=== PATIENT | male | born 1970 | race Caucasian/White ===

== ENCOUNTER 2019-04-25 10:43 | Inpatient (IN) ==
[2019-04-25] MEDS ORDERED: CeFAZolin Syr 2,000MG/20 ML 2,000 MG/20 ML SYRINGE IVPB ONE (11:16)
[2019-04-25 11:20] LABS: INR 1.1; Prothrombin Time 12.4 Seconds (9.4-12.1)
[2019-04-25 11:23] LABS: Activated Partial Thrombo Time 35.4 Seconds (26.0-36.0)
[2019-04-25] MEDS ORDERED: Ringers Solution, Lactated 1,000 ML IVC SCH ×2 (11:30→15:37)
[2019-04-25] MEDS ORDERED: *HR* OxyCODONE Immed Rel 5 MG TABLET PO ONE (11:42)
[2019-04-25] MEDS ORDERED: *HR* HYDROmorphone (PF) 1 MG/ML SYRINGE IVP PRN (11:42)
[2019-04-25] MEDS ORDERED: Ondansetron 4 MG/2 ML VIAL IVP ONE (11:42)
[2019-04-25] MEDS ORDERED: *HR* Promethazine 25 MG/ML VIAL IVP PRN (11:42)
[2019-04-25] MEDS ORDERED: *HR* Labetalol 20 MG/4 ML SYRINGE IVP PRN (11:42)
[2019-04-25] MEDS ORDERED: Gabapentin 300 MG CAPSULE PO ONE (11:42)
[2019-04-25] MEDS ORDERED: *HR* Midazolam HCl 2 MG/2 ML VIAL ONE (12:08)
[2019-04-25] MEDS ORDERED: *HR* FentaNYL (PF) 100 MCG/2 ML VIAL ONE (12:08)
[2019-04-25] MEDS ORDERED: *HR* Propofol 200 MG/20 ML VIAL IVP ONE (12:08)
[2019-04-25] MEDS ORDERED: Lidocaine -MPF 2% 2 ML VIAL ONE (12:11)
[2019-04-25] MEDS ORDERED: *HR* Succinylcholine 200 MG/10 ML VIAL IVP ONE (12:11)
[2019-04-25] MEDS ORDERED: Dexamethasone 4 MG/ML VIAL ONE ×2 (12:11→12:35)
[2019-04-25] MEDS ORDERED: Lidocaine HCL 4 ML Topical Solution (Laryng-O-Jet Kit Sterile Pak) TP ONE (12:11)
[2019-04-25] MEDS ORDERED: *HR* Rocuronium Bromide 50 MG/5 ML VIAL ONE (12:11)
[2019-04-25] MEDS ORDERED: Ondansetron 4 MG/2 ML VIAL ONE (12:11)
[2019-04-25] MEDS ORDERED: Ethanol\\Acetic Acid\\Na Ace\\Ben 1,000 ML IRRIG.SOLN IR ONE (12:27)
[2019-04-25] MEDS ORDERED: Ropivacaine/PF 0.5% 30 ML VIAL ONE (12:36)
[2019-04-25] MEDS ORDERED: ROPIVACAINE/PF/NS 0.25% 1 EACH SYRINGE INTRAART ONE (12:36)
[2019-04-25] MEDS ORDERED: EPHEDrine 50 MG/ML VIAL ONE (13:19)
[2019-04-25] MEDS ORDERED: *HR* PHENYLEPHRINE 1,000 MCG/10 ML SYRINGE IVP ONE (13:29)
[2019-04-25 15:28] LABS: Hematocrit 35.8 % (37.5-50.1)
[2019-04-25 15:30] LABS: Hemoglobin 11.4 g/dL (12.9-16.9)
[2019-04-25] MEDS ORDERED: Ondansetron 4 MG/2 ML VIAL IVP PRN (15:37)
[2019-04-25] MEDS ORDERED: Sennosides 8.6 MG TABLET PO PRN (15:37)
[2019-04-25] MEDS ORDERED: traMADol 50 MG TABLET PO PRN (15:37)
[2019-04-25] MEDS ORDERED: *HR* OxyCODONE/APAP 5/325 TABLET PO PRN (15:37)
[2019-04-25] MEDS ORDERED: Diclofenac Sodium (DR) 75 MG TABLET.DR PO PRN ×2 (15:37→21:00)
[2019-04-25] MEDS ORDERED: MOM Conc 10 ML UD.LIQ PO PRN (15:37)
[2019-04-25] MEDS ORDERED: *HR* Enoxaparin 30 MG/0.3 ML SYRINGE SQ SCH (18:00)
[2019-04-25] MEDS: *HR* Enoxaparin 30 MG/0.3 ML SYRINGE SQ SCH (18:57)
[2019-04-25] MEDS: Metoprolol 100 MG TABLET PO SCH (20:05)
[2019-04-25] MEDS ORDERED: Temazepam 15 MG CAPSULE PO PRN (21:00)
[2019-04-25] MEDS: *HR* OxyCODONE Immed Rel 5 MG TABLET PO PRN (23:08)
[2019-04-26] MEDS: *HR* OxyCODONE Immed Rel 5 MG TABLET PO PRN ×2 (04:59→10:08)
[2019-04-26] MEDS: *HR* Enoxaparin 30 MG/0.3 ML SYRINGE SQ SCH (05:01)
[2019-04-26 06:36] LABS: Hematocrit 36.7 % (37.5-50.1); Hemoglobin 12.4 g/dL (12.9-16.9)
[2019-04-26 06:56] LABS: BUN/Creatinine Ratio 19 (6-26); Blood Urea Nitrogen 14 mg/dL (6-20); Calcium 9.1 mg/dL (8.6-10.3); Carbon Dioxide 24 mEq/L (23-29); Chloride 102 mEq/L (98-107); Glucose 215 mg/dL (70-105); Osmolality,Calculated 289 (280-300); Potassium 3.9 mEq/L (3.5-5.1); Sodium 136 mEq/L (136-145); eGFR For African Americans > 60 (> 60); eGFR For Non-African Americans > 60 (> 60)
[2019-04-26 07:05] VITALS: BP 114/65
[2019-04-26] MEDS: Metoprolol 100 MG TABLET PO SCH (08:25)
[2019-04-26] MEDS ORDERED: FLU Vac QV 19-20 (6Month+)/PF 0.5 ML SYRINGE IM ONE (08:28)
[2019-04-26] MEDS ORDERED: Furosemide 40 MG TABLET PO SCH (09:00)
[2019-04-26 12:57] LABS: Estimated Average Glucose 105 mg/dl
== END 2019-04-26 14:00 | disposition home or self-care (01) | DRG 483 ==
LOC: SAMDAY 10:43 → 3NENU 15:36
PROVIDERS: ADMIT Orthopaedic Surgery; ATTEND Orthopaedic Surgery

== ENCOUNTER 2019-11-28 13:22 | Inpatient (IN) ==
[2019-11-28] MEDS ORDERED: CeFAZolin Syr 2,000MG/20 ML 2,000 MG/20 ML SYRINGE IVPB ONE (13:43)
[2019-11-28] MEDS ORDERED: Ringers Solution, Lactated 1,000 ML IVC SCH (13:45)
[2019-11-28] MEDS ORDERED: Ropivacaine/PF 0.5% 30 ML VIAL ONE (14:42)
[2019-11-28] MEDS ORDERED: ROPIVACAINE/PF/NS 0.25% 1 EACH SYRINGE INTRAART ONE (14:43)
[2019-11-28] MEDS ORDERED: Lidocaine -MPF 4% 5 ML AMPUL ONE (14:45)
[2019-11-28] MEDS ORDERED: *HR* Midazolam HCl 2 MG/2 ML VIAL ONE (14:45)
[2019-11-28] MEDS ORDERED: *HR* FentaNYL (PF) 100 MCG/2 ML VIAL ONE ×2 (14:45→17:49)
[2019-11-28] MEDS ORDERED: *HR* Succinylcholine 200 MG/10 ML VIAL IVP ONE (14:45)
[2019-11-28] MEDS ORDERED: *HR* Propofol 200 MG/20 ML VIAL IVP ONE (14:45)
[2019-11-28] MEDS ORDERED: Lidocaine -MPF 2% 2 ML VIAL ONE (14:45)
[2019-11-28] MEDS ORDERED: Ondansetron 4 MG/2 ML VIAL IVP ONE (14:50)
[2019-11-28] MEDS ORDERED: *HR* HYDROmorphone PF 0.5 MG/0.5 ML SYRINGE IVP PRN (14:50)
[2019-11-28] MEDS ORDERED: *HR* OxyCODONE Immed Rel 5 MG TABLET PO PRN (14:50)
[2019-11-28] MEDS ORDERED: Vancomycin 1,000 MG VIAL ONE (15:31)
[2019-11-28] MEDS ORDERED: Ethanol\\Acetic Acid\\Na Ace\\Ben 1,000 ML IRRIG.SOLN IR ONE (15:31)
[2019-11-28] MEDS ORDERED: EPHEDrine 50 MG/ML VIAL ONE (15:52)
[2019-11-28] MEDS ORDERED: Ondansetron 4 MG/2 ML VIAL ONE (15:52)
[2019-11-28] MEDS ORDERED: Dexamethasone 4 MG/ML VIAL ONE (15:52)
[2019-11-28] MEDS ORDERED: *HR* PHENYLEPHRINE 1,000 MCG/10 ML SYRINGE IVP ONE ×3 (15:58→16:53)
[2019-11-28] MEDS ORDERED: Ketorolac 30 MG/ML VIAL ONE (17:42)
[2019-11-28 18:49] LABS: Hematocrit 31.9 % (37.5-50.1); Hemoglobin 9.7 g/dL (12.9-16.9)
[2019-11-28] MEDS ORDERED: Naloxone 0.4 MG/ML INJ IVP PRN (19:40)
[2019-11-28] MEDS ORDERED: Dextrose Gel 15 GM/37.5 ML TUBE PO PRN ×2 (19:40)
[2019-11-28] MEDS ORDERED: D5% in Water 1,000 ML IVC PRN (19:40)
[2019-11-28] MEDS ORDERED: Sennosides 8.6 MG TABLET PO PRN (19:40)
[2019-11-28] MEDS ORDERED: *HR* OxyCODONE/APAP 5/325 TABLET PO PRN (19:40)
[2019-11-28] MEDS ORDERED: Ondansetron 4 MG/2 ML VIAL IVP PRN (19:40)
[2019-11-28] MEDS ORDERED: *HR* Dextrose 50 % in Water (Vial) 50 ML VIAL IVP PRN (19:40)
[2019-11-28] MEDS ORDERED: MOM Conc 10 ML UD.LIQ PO PRN (21:00)
[2019-11-28] MEDS: Ringers Solution, Lactated 1,000 ML IVC SCH (21:27)
[2019-11-28] MEDS: CeFAZolin 2 GM/120 ML BAG IVPB SCH (21:31)
[2019-11-28] MEDS: Ibuprofen 800 MG TABLET PO PRN (21:33)
[2019-11-28] MEDS: Metoprolol 100 MG TABLET PO SCH (21:34)
[2019-11-29] MEDS: CeFAZolin 2 GM/120 ML BAG IVPB SCH (03:10)
[2019-11-29] MEDS: Ibuprofen 800 MG TABLET PO PRN (03:13)
[2019-11-29 04:13] LABS: Hematocrit 30.5 % (37.5-50.1); Hemoglobin 9.5 g/dL (12.9-16.9)
[2019-11-29 04:29] LABS: BUN/Creatinine Ratio 19 (6-26); Blood Urea Nitrogen 17 mg/dL (6-20); Calcium 8.4 mg/dL (8.6-10.3); Carbon Dioxide 24 mEq/L (23-29); Chloride 105 mEq/L (98-107); Glucose 143 mg/dL (70-105); Osmolality,Calculated 288 (280-300); Potassium 4.5 mEq/L (3.5-5.1); Sodium 137 mEq/L (136-145); eGFR For African Americans > 60 (> 60); eGFR For Non-African Americans > 60 (> 60)
[2019-11-29] MEDS: Metoprolol 100 MG TABLET PO SCH (08:30)
[2019-11-29] MEDS: *HR* OxyCODONE Immed Rel 5 MG TABLET PO PRN ×3 (08:31→22:45)
[2019-11-29] MEDS ORDERED: Furosemide 40 MG TABLET PO SCH (09:00)
[2019-11-29] MEDS ORDERED: Aspirin Enteric Coated 81 MG Tablet PO SCH ×2 (09:00)
[2019-11-29] MEDS: Ringers Solution, Lactated 1,000 ML IVC SCH (12:28)
[2019-11-29] MEDS ORDERED: *HR* Succinylcholine 200 MG/10 ML VIAL IVP ONE (17:29)
[2019-11-29] MEDS ORDERED: Ondansetron 4 MG/2 ML VIAL ONE (17:29)
[2019-11-29] MEDS ORDERED: Dexamethasone 4 MG/ML VIAL ONE (17:29)
[2019-11-29] MEDS ORDERED: Lidocaine -MPF 2% 2 ML VIAL ONE ×2 (17:29→18:45)
[2019-11-29] MEDS ORDERED: Lidocaine HCL 4 ML Topical Solution (Laryng-O-Jet Kit Sterile Pak) TP ONE (17:29)
[2019-11-29] MEDS ORDERED: *HR* Propofol 200 MG/20 ML VIAL IVP ONE ×2 (17:30→18:42)
[2019-11-29] MEDS ORDERED: Vancomycin 1,000 MG VIAL ONE (17:30)
[2019-11-29] MEDS ORDERED: Ethanol\\Acetic Acid\\Na Ace\\Ben 1,000 ML IRRIG.SOLN IR ONE (17:30)
[2019-11-29] MEDS ORDERED: *HR* FentaNYL (PF) 100 MCG/2 ML VIAL ONE ×2 (17:32→18:44)
[2019-11-29] MEDS ORDERED: CeFAZolin Syr 2,000MG/20 ML 2,000 MG/20 ML SYRINGE IVPB ONE (18:17)
[2019-11-29] MEDS ORDERED: *HR* LORazepam 2 MG/ML VIAL IVP PRN (19:02)
[2019-11-29] MEDS ORDERED: *HR* Promethazine 25 MG/ML VIAL IVP PRN (19:02)
[2019-11-29] MEDS ORDERED: *HR* Labetalol 20 MG/4 ML SYRINGE IVP PRN (19:02)
[2019-11-29] MEDS ORDERED: Ondansetron 4 MG/2 ML VIAL IVP PRN ×2 (19:02→22:25)
[2019-11-29] MEDS ORDERED: *HR* HYDROMORPHONE 2 MG/ML VIAL ONE (20:02)
[2019-11-29] MEDS: *HR* HYDROmorphone (PF) 1 MG/ML SYRINGE IVP PRN ×2 (20:50→21:02)
[2019-11-29 21:10] LABS: Hematocrit 33.5 % (37.5-50.1); Hemoglobin 10.2 g/dL (12.9-16.9)
[2019-11-29] MEDS ORDERED: Ringers Solution, Lactated 1,000 ML IVC SCH (22:25)
[2019-11-29] MEDS ORDERED: Ibuprofen 800 MG TABLET PO PRN (22:25)
[2019-11-29] MEDS ORDERED: MOM Conc 10 ML UD.LIQ PO PRN (22:25)
[2019-11-29] MEDS ORDERED: Sennosides 8.6 MG TABLET PO PRN (22:25)
[2019-11-29] MEDS ORDERED: Naloxone 0.4 MG/ML INJ IVP PRN (22:25)
[2019-11-29] MEDS ORDERED: D5% in Water 1,000 ML IVC PRN (22:25)
[2019-11-29] MEDS ORDERED: Dextrose Gel 15 GM/37.5 ML TUBE PO PRN ×2 (22:25)
[2019-11-29] MEDS ORDERED: *HR* OxyCODONE/APAP 5/325 TABLET PO PRN (22:25)
[2019-11-29] MEDS ORDERED: Vancomycin 1,750 MG in 0.9 % Sodium Chloride 250 ML IVPB SCH (22:25)
[2019-11-29] MEDS ORDERED: *HR* Dextrose 50 % in Water (Vial) 50 ML VIAL IVP PRN (22:25)
[2019-11-29] MEDS: Vancomycin 1,750 MG/517.5 ML IV.SOLN IVPB SCH (23:10)
[2019-11-30] MEDS: *HR* OxyCODONE Immed Rel 5 MG TABLET PO PRN ×2 (08:04→12:14)
[2019-11-30] MEDS ORDERED: Furosemide 40 MG TABLET PO SCH (09:00)
[2019-11-30] MEDS ORDERED: Aspirin Enteric Coated 81 MG Tablet PO SCH (09:00)
[2019-11-30] MEDS ORDERED: Metoprolol 100 MG TABLET PO SCH (09:00)
[2019-11-30] MEDS: Vancomycin 1,750 MG/517.5 ML IV.SOLN IVPB SCH (11:05)
[2019-11-30 17:23] VITALS: BP 111/67
== END 2019-11-30 18:15 | disposition home or self-care (01) | DRG 483 ==
LOC: SAMDAY 13:22 → 3NENU 19:38
PROVIDERS: ADMIT Orthopaedic Surgery; ATTEND Orthopaedic Surgery

== ENCOUNTER 2019-12-06 14:11 | Inpatient (IN) ==
[2019-12-06] MEDS ORDERED: Vancomycin 1,750 MG/517.5 ML IV.SOLN IVPB ONE (14:29)
[2019-12-06] MEDS ORDERED: Ringers Solution, Lactated 1,000 ML IVC SCH (14:30)
[2019-12-06] MEDS ORDERED: *HR* Midazolam HCl 2 MG/2 ML VIAL ONE ×2 (15:27→15:28)
[2019-12-06] MEDS ORDERED: *HR* FentaNYL (PF) 100 MCG/2 ML VIAL ONE (15:27)
[2019-12-06] MEDS ORDERED: *HR* Propofol 200 MG/20 ML VIAL IVP ONE (15:28)
[2019-12-06] MEDS ORDERED: *HR* Succinylcholine 200 MG/10 ML VIAL IVP ONE (15:29)
[2019-12-06] MEDS ORDERED: Lidocaine -MPF 2% 2 ML VIAL ONE (15:29)
[2019-12-06] MEDS ORDERED: Vancomycin 1,000 MG VIAL ONE ×2 (15:32→15:43)
[2019-12-06] MEDS ORDERED: Lidocaine -MPF 4% 5 ML AMPUL ONE (15:32)
[2019-12-06] MEDS ORDERED: Ethanol\\Acetic Acid\\Na Ace\\Ben 1,000 ML IRRIG.SOLN IR ONE (15:32)
[2019-12-06] MEDS ORDERED: *HR* OxyCODONE Immed Rel 5 MG TABLET PO PRN (15:40)
[2019-12-06] MEDS ORDERED: Acetaminophen IV 1,000 MG/100 ML INFUS..BTL IVPB ONE (15:40)
[2019-12-06] MEDS ORDERED: Ondansetron 4 MG/2 ML VIAL IVP ONE (15:40)
[2019-12-06] MEDS ORDERED: *HR* HYDROmorphone PF 0.5 MG/0.5 ML SYRINGE IVP PRN (15:40)
[2019-12-06] MEDS ORDERED: *HR* Promethazine 25 MG/ML VIAL IVP PRN (15:40)
[2019-12-06] MEDS ORDERED: ROPIVACAINE/PF/NS 0.25% 1 EACH SYRINGE INTRAART ONE (15:51)
[2019-12-06] MEDS ORDERED: Ropivacaine/PF 0.5% 30 ML VIAL ONE (15:51)
[2019-12-06] MEDS ORDERED: Clindamycin 900 MG/50 ML 900 MG/50 ML IV.SOLN IVPB ONE ×2 (16:17→17:11)
[2019-12-06] MEDS ORDERED: Ondansetron 4 MG/2 ML VIAL ONE (16:37)
[2019-12-06] MEDS ORDERED: Dexamethasone 4 MG/ML VIAL ONE (16:37)
[2019-12-06] MEDS ORDERED: *HR* PHENYLEPHRINE 1,000 MCG/10 ML SYRINGE IVP ONE (16:45)
[2019-12-06] MEDS ORDERED: EPHEDrine 50 MG/ML VIAL ONE (17:27)
[2019-12-06] MEDS ORDERED: *HR* Enoxaparin 30 MG/0.3 ML SYRINGE SQ SCH (18:00)
[2019-12-06 18:45] LABS: Hematocrit 27.3 % (37.5-50.1); Hemoglobin 8.5 g/dL (12.9-16.9)
[2019-12-06] MEDS ORDERED: D5% in Water 1,000 ML IVC PRN (19:39)
[2019-12-06] MEDS ORDERED: Sennosides 8.6 MG TABLET PO PRN (19:39)
[2019-12-06] MEDS ORDERED: Ondansetron 4 MG/2 ML VIAL IVP PRN (19:39)
[2019-12-06] MEDS ORDERED: MOM Conc 10 ML UD.LIQ PO PRN (19:39)
[2019-12-06] MEDS ORDERED: Naloxone 0.4 MG/ML INJ IVP PRN (19:39)
[2019-12-06] MEDS ORDERED: Dextrose Gel 15 GM/37.5 ML TUBE PO PRN ×2 (19:39)
[2019-12-06] MEDS ORDERED: *HR* Dextrose 50 % in Water (Vial) 50 ML VIAL IVP PRN (19:39)
[2019-12-06] MEDS: Doxycycline 100 MG CAPSULE PO SCH ×2 (23:05→23:08)
[2019-12-06] MEDS: Metoprolol 100 MG TABLET PO SCH (23:06)
[2019-12-06] MEDS: *HR* OxyCODONE Immed Rel 5 MG TABLET PO PRN (23:07)
[2019-12-06] MEDS: Ringers Solution, Lactated 1,000 ML IVC SCH (23:08)
[2019-12-06] MEDS: Insulin LISPRO 300 UNITS/3 ML VIAL SQ SCH ×2 (23:11→23:19)
[2019-12-07] MEDS ORDERED: Vancomycin 1,750 MG/517.5 ML IV.SOLN IVPB ONE (04:00)
[2019-12-07] MEDS: *HR* OxyCODONE Immed Rel 5 MG TABLET PO PRN ×3 (04:10→18:51)
[2019-12-07] MEDS ORDERED: Acetaminophen IV 1,000 MG/100 ML INFUS..BTL IVPB PRN (05:32)
[2019-12-07] MEDS: Ketorolac 30 MG/ML VIAL IVP PRN ×2 (05:54→21:12)
[2019-12-07] MEDS ORDERED: *HR* Enoxaparin 30 MG/0.3 ML SYRINGE SQ SCH (06:00)
[2019-12-07 07:16] LABS: Hematocrit 27.4 % (37.5-50.1); Hemoglobin 8.4 g/dL (12.9-16.9)
[2019-12-07 07:27] LABS: BUN/Creatinine Ratio 22 (6-26); Blood Urea Nitrogen 16 mg/dL (6-20); Calcium 8.4 mg/dL (8.6-10.3); Carbon Dioxide 23 mEq/L (23-29); Chloride 103 mEq/L (98-107); Glucose 131 mg/dL (70-105); Osmolality,Calculated 279 (280-300); Potassium 3.9 mEq/L (3.5-5.1); Sodium 133 mEq/L (136-145); eGFR For African Americans > 60 (> 60); eGFR For Non-African Americans > 60 (> 60)
[2019-12-07] MEDS: Doxycycline 100 MG CAPSULE PO SCH ×2 (08:16→21:12)
[2019-12-07] MEDS: Furosemide 40 MG TABLET PO SCH (08:16)
[2019-12-07] MEDS: Metoprolol 100 MG TABLET PO SCH ×2 (08:16→21:12)
[2019-12-07] MEDS: Gabapentin 300 MG CAPSULE PO SCH ×3 (08:16→21:12)
[2019-12-07 09:01] LABS: BUN/Creatinine Ratio 20 (6-26); Blood Urea Nitrogen 16 mg/dL (6-20); eGFR For African Americans > 60 (> 60); eGFR For Non-African Americans > 60 (> 60)
[2019-12-07] MEDS: Insulin LISPRO 300 UNITS/3 ML VIAL SQ SCH ×4 (10:07→22:01)
[2019-12-07] MEDS: Vancomycin 1,750 MG/517.5 ML IV.SOLN IVPB SCH (17:03)
[2019-12-08] MEDS: *HR* OxyCODONE Immed Rel 5 MG TABLET PO PRN ×4 (03:22→17:13)
[2019-12-08 03:47] LABS: Hematocrit 27.9 % (37.5-50.1); Hemoglobin 8.4 g/dL (12.9-16.9)
[2019-12-08 04:09] LABS: BUN/Creatinine Ratio 23 (6-26); Blood Urea Nitrogen 20 mg/dL (6-20); Calcium 8.3 mg/dL (8.6-10.3); Carbon Dioxide 25 mEq/L (23-29); Chloride 104 mEq/L (98-107); Glucose 95 mg/dL (70-105); Osmolality,Calculated 284 (280-300); Potassium 3.6 mEq/L (3.5-5.1); Sodium 136 mEq/L (136-145); eGFR For African Americans > 60 (> 60); eGFR For Non-African Americans > 60 (> 60)
[2019-12-08] MEDS: Vancomycin 1,750 MG/517.5 ML IV.SOLN IVPB SCH ×2 (04:23→13:46)
[2019-12-08] MEDS: Insulin LISPRO 300 UNITS/3 ML VIAL SQ SCH ×4 (08:15→21:25)
[2019-12-08] MEDS: Furosemide 40 MG TABLET PO SCH (08:20)
[2019-12-08] MEDS: Gabapentin 300 MG CAPSULE PO SCH ×3 (08:20→20:19)
[2019-12-08] MEDS: Doxycycline 100 MG CAPSULE PO SCH ×2 (08:20→20:19)
[2019-12-08] MEDS: Metoprolol 100 MG TABLET PO SCH ×2 (08:20→20:19)
[2019-12-08] MEDS ORDERED: Aminoglycoside Consult 1 EACH MC ONE (11:13)
[2019-12-08] MEDS: Ketorolac 30 MG/ML VIAL IVP PRN (13:45)
[2019-12-09] MEDS: *HR* OxyCODONE Immed Rel 5 MG TABLET PO PRN ×5 (00:45→20:55)
[2019-12-09 01:08] LABS: Basophils # 0.1 K/mcL (0.0-0.2); Basophils % 0.6 %; Eosinophils # 0.4 K/mcL (0.0-0.6); Eosinophils % 4.7 %; Hematocrit 28.2 % (37.5-50.1); Hemoglobin 8.5 g/dL (12.9-16.9); Immature Granulocytes % 0.5 % (0-4); Lymphocytes # 1.9 K/mcL (0.6-4.6); Mean Corpuscular HGB Conc 30.1 g/dL (31.6-35.5); Mean Corpuscular Hemoglobin 28.5 pg (28.0-33.3); Mean Corpuscular Volume 94.6 fL (83.0-100.0); Mean Platelet Volume 10.8 fL (9.4-12.4); Monocytes # 0.9 K/mcL (0.0-1.3); Monocytes % 11.2 %; Platelet Count 271 K/mcL (140-400); Red Blood Count 2.98 M/mcL (4.19-5.50); Red Cell Distribution Width 14.6 % (11.5-14.5); White Blood Count 8.4 K/mcL (4.3-11.1)
[2019-12-09 01:14] LABS: BUN/Creatinine Ratio 20 (6-26); Blood Urea Nitrogen 18 mg/dL (6-20); Calcium 8.3 mg/dL (8.6-10.3); Carbon Dioxide 25 mEq/L (23-29); Chloride 103 mEq/L (98-107); Glucose 108 mg/dL (70-105); Osmolality,Calculated 282 (280-300); Sodium 135 mEq/L (136-145); eGFR For African Americans > 60 (> 60); eGFR For Non-African Americans > 60 (> 60)
[2019-12-09] MEDS: Vancomycin 1,750 MG/517.5 ML IV.SOLN IVPB SCH (03:38)
[2019-12-09] MEDS: Ibuprofen 800 MG TABLET PO PRN (03:38)
[2019-12-09] MEDS: Doxycycline 100 MG CAPSULE PO SCH (08:40)
[2019-12-09] MEDS: Metoprolol 100 MG TABLET PO SCH ×2 (08:41→20:55)
[2019-12-09] MEDS: Gabapentin 300 MG CAPSULE PO SCH ×3 (08:42→20:55)
[2019-12-09] MEDS: Insulin LISPRO 300 UNITS/3 ML VIAL SQ SCH ×4 (08:43→20:51)
[2019-12-09] MEDS: Furosemide 40 MG TABLET PO SCH (08:46)
[2019-12-09] MEDS: Piperacillin/Tazobactam 3.375 GM in 0.9 % Sodium Chloride Mini Bag 100 ML IVPB SCH (15:39)
[2019-12-09] MEDS: *HR* OxyCODONE/APAP 5/325 TABLET PO PRN (18:30)
[2019-12-09] MEDS: Ringers Solution, Lactated 1,000 ML IVC SCH (18:31)
[2019-12-10] MEDS: *HR* OxyCODONE/APAP 5/325 TABLET PO PRN ×3 (01:02→13:57)
[2019-12-10] MEDS: Piperacillin/Tazobactam 3.375 GM in 0.9 % Sodium Chloride Mini Bag 100 ML IVPB SCH ×3 (01:02→19:31)
[2019-12-10] MEDS: *HR* OxyCODONE Immed Rel 5 MG TABLET PO PRN ×4 (06:37→23:18)
[2019-12-10 06:53] LABS: Basophils % 0.3 %; Eosinophils # 0.4 K/mcL (0.0-0.6); Hematocrit 30.4 % (37.5-50.1); Hemoglobin 9.4 g/dL (12.9-16.9); Immature Granulocytes % 0.5 % (0-4); Lymphocytes % 21.6 %; Mean Corpuscular HGB Conc 30.9 g/dL (31.6-35.5); Mean Corpuscular Hemoglobin 28.6 pg (28.0-33.3); Mean Corpuscular Volume 92.4 fL (83.0-100.0); Mean Platelet Volume 10.6 fL (9.4-12.4); Monocytes # 1.1 K/mcL (0.0-1.3); Monocytes % 11.9 %; Neutrophils # 5.7 K/mcL (1.6-8.9); Platelet Count 286 K/mcL (140-400); Red Blood Count 3.29 M/mcL (4.19-5.50); Red Cell Distribution Width 14.6 % (11.5-14.5); Segmented Neutrophils % 61.7 %; White Blood Count 9.2 K/mcL (4.3-11.1)
[2019-12-10 07:14] LABS: BUN/Creatinine Ratio 16 (6-26); Blood Urea Nitrogen 14 mg/dL (6-20); Calcium 8.9 mg/dL (8.6-10.3); Carbon Dioxide 27 mEq/L (23-29); Chloride 101 mEq/L (98-107); Glucose 112 mg/dL (70-105); Osmolality,Calculated 283 (280-300); Potassium 3.9 mEq/L (3.5-5.1); Sodium 136 mEq/L (136-145); eGFR For African Americans > 60 (> 60); eGFR For Non-African Americans > 60 (> 60)
[2019-12-10] MEDS: Insulin LISPRO 300 UNITS/3 ML VIAL SQ SCH ×4 (09:11→21:11)
[2019-12-10] MEDS: Furosemide 40 MG TABLET PO SCH (09:18)
[2019-12-10] MEDS: Metoprolol 100 MG TABLET PO SCH ×2 (09:19→21:11)
[2019-12-10] MEDS: Gabapentin 300 MG CAPSULE PO SCH ×3 (09:19→21:10)
[2019-12-10 09:38] LABS: C-Reactive Protein 106 mg/L (Less than 10)
[2019-12-10] MEDS: Ibuprofen 800 MG TABLET PO PRN (21:10)
[2019-12-11] MEDS: Piperacillin/Tazobactam 3.375 GM in 0.9 % Sodium Chloride Mini Bag 100 ML IVPB SCH ×2 (00:27→11:57)
[2019-12-11] MEDS: *HR* OxyCODONE Immed Rel 5 MG TABLET PO PRN ×5 (03:23→20:51)
[2019-12-11] MEDS: Metoprolol 100 MG TABLET PO SCH ×2 (07:56→20:51)
[2019-12-11] MEDS: Furosemide 40 MG TABLET PO SCH (07:56)
[2019-12-11] MEDS: Gabapentin 300 MG CAPSULE PO SCH ×3 (07:56→20:52)
[2019-12-11] MEDS: Insulin LISPRO 300 UNITS/3 ML VIAL SQ SCH ×4 (07:57→20:46)
[2019-12-11] MEDS: *HR* OxyCODONE/APAP 5/325 TABLET PO PRN ×2 (13:46→23:59)
[2019-12-11] MEDS: cefTRIAXone 2,000 MG in 0.9 % Sodium Chloride Mini Bag 100 ML IVPB SCH (16:12)
[2019-12-12] MEDS: *HR* OxyCODONE Immed Rel 5 MG TABLET PO PRN ×2 (01:53→09:11)
[2019-12-12] MEDS: *HR* OxyCODONE/APAP 5/325 TABLET PO PRN (05:11)
[2019-12-12 07:27] VITALS: BP 128/76
[2019-12-12] MEDS: Furosemide 40 MG TABLET PO SCH (09:12)
[2019-12-12] MEDS: Gabapentin 300 MG CAPSULE PO SCH (09:12)
[2019-12-12] MEDS: cefTRIAXone 2,000 MG in 0.9 % Sodium Chloride Mini Bag 100 ML IVPB SCH (09:12)
[2019-12-12] MEDS: Metoprolol 100 MG TABLET PO SCH (09:12)
[2019-12-12] MEDS: Insulin LISPRO 300 UNITS/3 ML VIAL SQ SCH (09:12)
== END 2019-12-12 13:07 | disposition home health service (06) | DRG 483 ==
LOC: SAMDAY 14:11 → 3NENU 19:29
PROVIDERS: ADMIT Orthopaedic Surgery; ATTEND Orthopaedic Surgery

== ENCOUNTER 2020-11-16 01:34 | Observation (INO) ==
[2020-11-16] MEDS ORDERED: Naloxone 0.4 MG/ML INJ IVP PRN (07:52)
[2020-11-16] MEDS ORDERED: amLODIPine 5 MG TABLET PO SCH (11:30)
[2020-11-16] MEDS: *HR* Heparin 5,000 UNIT/ML VIAL SQ SCH ×2 (14:14→22:15)
[2020-11-16] MEDS ORDERED: Acetaminophen 325 MG TABLET PO ONE (16:27)
[2020-11-17] MEDS ORDERED: Acetaminophen 325 MG TABLET PO PRN (01:13)
[2020-11-17 05:02] LABS: BUN/Creatinine Ratio 21 (6-26); Blood Urea Nitrogen 15 mg/dL (6-20); Calcium 8.7 mg/dL (8.6-10.3); Carbon Dioxide 23 mEq/L (23-29); Chloride 105 mEq/L (98-107); Glucose 98 mg/dL (70-105); Osmolality,Calculated 281 (280-300); Potassium 4.2 mEq/L (3.5-5.1); Sodium 135 mEq/L (136-145); eGFR For African Americans > 60 (> 60); eGFR For Non-African Americans > 60 (> 60)
[2020-11-17 05:50] LABS: Basophils % 0.5 %; Eosinophils # 0.3 K/mcL (0.0-0.6); Eosinophils % 3.7 %; Hematocrit 44.9 % (37.5-50.1); Hemoglobin 14.7 g/dL (12.9-16.9); Immature Granulocytes % 0.2 % (0-4); Lymphocytes # 2.5 K/mcL (0.6-4.6); Lymphocytes % 31.6 %; Mean Corpuscular HGB Conc 32.7 g/dL (31.6-35.5); Mean Corpuscular Hemoglobin 30.8 pg (28.0-33.3); Mean Corpuscular Volume 94.1 fL (83.0-100.0); Mean Platelet Volume 10.2 fL (9.4-12.4); Monocytes # 0.8 K/mcL (0.0-1.3); Monocytes % 10.3 %; Neutrophils # 4.3 K/mcL (1.6-8.9); Platelet Count 177 K/mcL (140-400); Red Blood Count 4.77 M/mcL (4.19-5.50); Red Cell Distribution Width 13.2 % (11.5-14.5); Segmented Neutrophils % 53.7 %
[2020-11-17] MEDS: *HR* Heparin 5,000 UNIT/ML VIAL SQ SCH (05:57)
[2020-11-17 11:09] VITALS: BP 142/92
== END 2020-11-17 13:37 | disposition home or self-care (01) ==
LOC: 3BNU → SUATTDRO 07:41
PROVIDERS: ADMIT Family Medicine; ATTEND Internal Medicine